=== PATIENT | female | born 1975 | race Caucasian/White ===

== ENCOUNTER 2017-01-07 17:04 | Emergency (ER) | payer OTHER ==
[2017-01-07 17:30] VITALS: BP 141/94; PULSE 73; TEMP 98.6; BMI 34.5
--- NOTE | 2017-01-07 18:19 | PDOC ---
History of Present Illness - General Chief Complaint: Pain Stated Complaint: LT BREAST PAIN Time Seen by Provider: 01/07/17 18:10 History Source: Patient Exam Limitations: No Limitations - History of Present Illness Initial Comments: 01/07/17 18:19 CHIEF COMPLAINT: Breast pain HISTORY OF PRESENT ILLNESS: This is an otherwise healthy 41 year old female who underwent biopsy of a left breast cyst yesterday. She presents today with left breast pain, at and superior to the incision site. She has not noticed redness, swelling, discharge from the site, fevers/chills, or any other abnormalities. She denies chest pain, diaphoresis, nausea/vomiting, or any other symptoms. She was told to take Motrin for pain, but has not taken any yet. REVIEW OF SYSTEMS: GENERAL/CONSTITUTIONAL: No fever or chills. No weakness. No weight change. CARDIOVASCULAR: No chest pain or palpitations. RESPIRATORY: No cough, wheezing, or shortness of breath. MUSCULOSKELETAL: See HPI SKIN: No rash or easy bruising. HEMATOLOGIC/LYMPHATIC: No anemia, easy bleeding, or history of blood clots. ALLERGIC/IMMUNOLOGIC: No hives or skin allergy. No latex allergy. PHYSICAL EXAM: GENERAL: The patient is awake, alert, and fully oriented, in no acute distress. LUNGS: Clear to auscultation bilaterally. Normal excursion. No respiratory distress or use of accessory muscles. CV: RRR, S1/S2, no MRG. Cap refill < 2 sec. ABDOMEN: Soft, non-distended, non-tender. EXTREMITIES: Normal range of motion, no edema. NEUROLOGICAL: Normal speech, normal gait. CN II-XII grossly intact. PSYCH: Normal mood, normal affect. SKIN: Warm, dry, normal turgor, no rashes or lesions noted. BREAST: Left breast: punctate incision at 5 o'clock position, no surrounding erythema, no discharge, no point tenderness. Past History - Past Medical History Allergies/Adverse Reactions: Allergies Allergy/AdvReac Type Severity Reaction Status Date / Time No Known Allergies Allergy Verified 01/07/17 17:27 Home Medications: Ambulatory Orders NK [No Known Home Medication] 01/07/17 Other medical history: DENIES. - Psycho/Social/Smoking Cessation Hx Suicidal Ideation: No Smoking History: Never smoked *Physical Exam - Vital Signs Last Vital Signs Temp Pulse Resp BP Pulse Ox 98.6 F 73 19 141/94 98 01/07/17 17:27 01/07/17 17:27 01/07/17 17:27 01/07/17 17:27 01/07/17 17:27 Heart Score/ECG Review - ECG Intrepretation Comment:: 01/07/17 18:53 NSR rate 72 bpm Medical Decision Making - Medical Decision Making 01/07/17 18:56 A/P: 41 year old female with breast pain s/p biospy. -EKG: No ischemic changes -Ibuprofen for pain -Discussed with breast surgeon who performed biospy, Dr. Brennan. States pain is expected. Advises continuation of Motrin, office followup on Tuesday if needed. *DC/Admit/Observation/Transfer Diagnosis at time of Disposition: Breast pain, left - Discharge Dispostion Disposition: HOME Condition at time of disposition: Stable Admit: No - Referrals Referrals: Estefanía Brennan MD [Staff Physician] - - Patient Instructions Printed Discharge Instructions: DI for Breast Biopsy Additional Instructions: -Take Motrin as needed for pain -If you continue to have symptoms, see Dr. Brennan in the office on Tuesday -Otherwise, follow up at your regularly scheduled appointment -Return here for chest pain, shortness of breath, fevers, or any other concerning symptoms
[2017-01-07] MEDS ORDERED: IBUPROFEN 600 MG TABLET (FP) PO ONE ×2 (18:34→18:41)
--- NOTE | 2017-01-10 16:57 | EKG ---
Test Reason : Blood Pressure : / mmHG Vent. Rate : 072 BPM Atrial Rate : 072 BPM P-R Int : 144 ms QRS Dur : 090 ms QT Int : 390 ms P-R-T Axes : 036 027 040 degrees QTc Int : 427 ms NORMAL SINUS RHYTHM NORMAL ECG NO PREVIOUS ECGS AVAILABLE Confirmed by LIAN ROCHA MD ([id number]) on 01/10/2017 4:56:53 PM Referred By: Confirmed By:LIAN ROCHA MD
== END 2017-01-07 18:57 | disposition home or self-care (01) ==
LOC: JERFT 17:04
DX: G89.18 Other acute postprocedural pain (principal)
CPT/HCPCS: 93005; 93010; 99281-25